=== PATIENT | female | born 1985 | race Caucasian/White ===

== ENCOUNTER 2022-02-09 10:15 | Emergency (ER) | payer OTHER ==
--- NOTE | 2022-02-09 11:14 | XRAY ---
Indication: Pain and erythema. Two-dimensional sonogram and color Doppler imaging of the major venous vessels of the right leg performed. Comparison: None No thrombus seen in the examined deep venous vessels of the right leg including greater saphenous vein. Veins demonstrate normal compressibility. Venous waveforms are normal with and without augmentation. Impression: Right leg negative for DVT.
--- NOTE | 2022-02-09 11:19 | ERPHSYRPT ---
- History of Present Illness Source: patient Exam Limitations: no limitations Patient Subjective Stated Complaint: Pt states "Yesterday I noticed I had shooting pain down my right thigh and when I looked I had a knot and it was red." Triage Nursing Assessment: Pt presented alert and oriented X 3, skin pwd. Pt ambulates with an upright steady gait, able to speak in clear full sentences pt in no apparent respiratory distress. Pt has red round area noted to medial right thigh Physician History: 36 yo wf w R medial thigh pain w small area of erythema since last night. She denies injury/fever/dyspnea/chest pain/hx DVT-PE. Pain is much improved since last night. Pain described as sharp and worse w direct pressure. Method of Injury: unknown Occurred: yesterday Severity of Pain-Max: moderate Severity of Pain-Current: mild Lower Extremities Pain: thigh: right (R superrior thigh) Modifying Factors: Improves With: other (Worse w direct pressure) Associated Symptoms: none Allergies/Adverse Reactions: No Known Drug Allergies Allergy (Verified 02/09/22 10:26) Hx Tetanus, Diphtheria Vaccination/Date Given: No Hx Influenza Vaccination/Date Given: No Hx Pneumococcal Vaccination/Date Given: No Immunizations Up to Date: Yes Travel Risk - International Travel Have you traveled outside of the country in past 3 weeks: No - Coronavirus Screening Are you exhibiting any of the following symptoms?: No Close contact with a COVID-19 positive Pt in past 14-21 Days: No - Vaccine Status Have you recieved a Covid-19 vaccination: No - Review of Systems Constitutional: No Symptoms Eyes: No Symptoms Ears, Nose, & Throat: No Symptoms Respiratory: No Symptoms Cardiac: No Symptoms Abdominal/Gastrointestinal: No Symptoms Genitourinary Symptoms: No Symptoms Musculoskeletal: No Symptoms, Myalgias Skin: No Symptoms, Cellulitis Neurological: No Symptoms Psychological: No Symptoms Endocrine: No Symptoms Hematologic/Lymphatic: No Symptoms Immunological/Allergic: No Symptoms - Past Medical History Pertinent Past Medical History: No - Past Surgical History Past Surgical History: Yes Other Surgical History: tubal. tonsil - Social History Smoking Status: Former smoker Exposure to second hand smoke: No Drug Use: none Patient Lives Alone: No Significant Family History: no pertinent family hx - Female History Hx Last Menstrual Period: 01/19/2022 Hx Now: No - Nursing Vital Signs Nursing Vital Signs: Initial Vital Signs Temperature 98.2 F 02/09/22 10:21 Pulse Rate 90 02/09/22 10:21 Respiratory Rate 20 02/09/22 10:21 Blood Pressure 121/91 02/09/22 10:21 O2 Sat by Pulse Oximetry 97 02/09/22 10:21 Pain Scale Pain Intensity 2 WNL - Physical Exam General Appearance: no apparent distress Eyes, Ears, Nose, Throat Exam: normal ENT inspection, TMs normal, pharynx normal, moist mucous membranes Neck Exam: normal inspection, non-tender, supple, full range of motion, No Brudzinski, No Kernig's, No meningismus Cardiovascular/Respiratory Exam: normal breath sounds, regular rate/rhythm, heart sounds normal, no respiratory distress Gastrointestinal/Abdominal Exam: non-tender Back Exam: normal inspection, normal range of motion, No CVA tenderness, No vertebral tenderness Hips Exam: bilateral: non-tender, normal inspection, normal range of motion, no evidence of injury Legs Exam: right leg: pain (Mild TTP R medial thigh w very small area of erythema/Good pedal pulse, distal sensation, and capillary return) Knees Exam: bilateral knee: non-tender, normal inspection, normal range of motion, no evidence of injury Ankle Exam: bilateral ankle: non-tender, normal inspection, normal range of motion, no evidence of injury Foot Exam: bilateral foot: non-tender, normal inspection, normal range of motion, no evidence of injury Neuro/Tendon Exam: normal sensation, normal motor functions, normal tendon functions, responds to pain Mental Status Exam: alert, oriented x 3, cooperative Skin Exam: normal color, warm, dry SpO2 Interpretation: normal SpO2: 97 O2 Delivery: Room Air - Course Nursing assessment & vital signs reviewed: Yes Ordered Tests: Active Orders 24 hr Category Date Time Status VENOUS UNILAT/LIMITED EXTREMIT [US] Stat Exams 02/09/22 10:46 Completed - Progress Progress Note: 02/09/22 11:22 Venous doppler RLE wnl per tech Counseled pt/family regarding: diagnosis, need for follow-up, rad results - Departure Departure Disposition: Home Clinical Impression: Cellulitis Condition: Stable Critical Care Time: No Referrals: BELKYS ROBERTO NP [Primary Care Provider] - Follow up/PCP as directed Instructions: Cellulitis (Skin Infection), Adult (DC) Additional Instructions: Follow up with your family MD Return to ER for increasing pain, swelling, or temperature greater than 100.65 Prescriptions: Doxycycline Monohydrate 100 mg PO BID #[id number]
[2022-02-09 11:27] VITALS: BP 109/75; PULSE 85
[2022-02-09 19:51] VITALS: O2SAT 97
== END 2022-02-09 11:33 | disposition home or self-care (01) ==
LOC: ED 10:15
DX: L03.115 Cellulitis of right lower limb (principal); M79.651 Pain in right thigh
CPT/HCPCS: 93971; 99283

== ENCOUNTER 2024-04-12 09:19 | Emergency (ER) | payer OTHER ==
[2024-04-12] MEDS ORDERED: PERCOCET TABLET 5/325MG ONE (09:41)
[2024-04-12] MEDS ORDERED: MOTRIN 600 MG ONE (09:42)
[2024-04-12] MEDS: MOTRIN 600 MG PO ONE (09:52)
[2024-04-12] MEDS: Lidoderm Patch 5% TOP STA (09:55)
[2024-04-12] MEDS: PERCOCET TABLET 5/325MG PO ONE (09:55)
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
--- NOTE | 2024-04-12 11:13 | XRAY ---
CLINICAL HISTORY: fall COMPARISON: None TECHNIQUE: X-ray of the Chest in [place] and lateral views FINDINGS: There is no evidence of any focal area of consolidation. Normal configuration of the mediastinum. The mandeep are normal in size and position. The cardiac size is normal. Costophrenic and cardiophrenic angles are clear. Retrocardiac and retrosternal spaces are normal. The bony thorax is unremarkable. IMPRESSION: Negative study for focal areas of consolidation, pleural effusion, or pneumothorax. Electronically Signed by: Socrates Hendrix MD. (04/12/2024 11:09:07 EDT)
[2024-04-12 11:40] VITALS: BP 127/94; PULSE 70; RESP 18; O2SAT 99
== END 2024-04-12 11:40 | disposition home or self-care (01) ==
LOC: ED 09:19
DX: R07.81 Pleurodynia (principal); Z79.899 Other long term (current) drug therapy
CPT/HCPCS: 71046; 99283; L0625; A9270-GY